=== PATIENT | male | born 1955 | race Caucasian/White ===

== ENCOUNTER 2022-03-31 09:57 | Emergency (ER) | payer OTHER ==
[~2022-03-31] VITALS: Ht 177.8 cm; Wt 77.1 kg
[2022-03-31 10:00] VITALS: BP 172/110
--- NOTE | 2022-03-31 10:03 | NUR ---
PT BIBA BLS TO BED 11
--- NOTE | 2022-03-31 10:05 | NUR ---
67/M BIBA FROM [facility], POST DIALYSIS COMPLETION, D/T HEMATURIA NOTED BY STAFF. PT REPORTS CHRONIC ABD PAIN S/P SX 1 MONTH AGO. DENIES NVD. AAO4, AMBULATORY, ON MONITOR. PMH: ABD TUMOR, HTN, RENAL FAILURE, DIALYSIS (MON,WED, FRI).
[2022-03-31 10:25] LABS: BASOPHILS # (AUTO) 0.1 K/uL (0.00-0.22); BASOPHILS % (AUTO) 1.3 % (0.0-2.0); EOSINOPHILS % (AUTO) 0.9 % (0.0-4.0); HEMATOCRIT 30.7 % (36-52); HEMOGLOBIN 9.8 g/dL (12.0-18.0); LYMPHOCYTES # (AUTO) 0.7 K/uL (2.0-11.5); LYMPHOCYTES % (AUTO) 16.1 % (20.5-51.1); MEAN CORPUSCULAR HEMOGLOBIN 24 pg (27-31); MEAN CORPUSCULAR HGB CONC 32 g/dL (33-37); MEAN CORPUSCULAR VOLUME 75.7 fL (80-94); MONOCYTES # (AUTO) 0.7 K/uL (0.8-1.0); MONOCYTES % (AUTO) 14.1 % (1.7-9.3); NEUTROPHILS # (AUTO) 3.1 K/uL (1.8-7.7); NEUTROPHILS % (AUTO) 67.6 % (42.2-75.2); PLATELET COUNT (AUTO) 245 K/uL (140-450); RED BLOOD CELL COUNT(AUTO) 4.06 MIL/uL (4.20-6.10); WHITE BLOOD COUNT (AUTO) 4.6 K/uL (4.8-10.8)
[2022-03-31 10:49] LABS: BILIRUBIN,URINE NEGATIVE (NEGATIVE); BLOOD, URINE LARGE (NEGATIVE); LEUKOCYTE ESTERASE ,URINE SMALL (NEGATIVE); NITRITE, URINE POSITIVE (NEGATIVE); PH,URINE 7.5 (5.0-9.0); UGLUCOSE NEGATIVE (NEGATIVE)
[2022-03-31 10:50] LABS: ALBUMIN 3.8 g/dL (3.4-5.0); CARBON DIOXIDE 32.8 mmol/L (21-32); CREATININE 3.6 mg/dL (0.6-1.3); TOTAL BILIRUBIN 0.5 mg/dL (0.0-1.0)
[2022-03-31 10:52] LABS: POTASSIUM 2.8 mmol/L (3.5-5.1)
[2022-03-31 10:58] LABS: APPEARANCE,URINE CLOUDY (CLEAR); COLOR,URINE ORANGE (YELLOW)
[2022-03-31 11:01] LABS: RBC,URINE 80-100 /HPF (0-5); WBC,URINE 60-80 /HPF (0-5)
[2022-03-31] MEDS ORDERED: CEPH-588 PO (11:22)
[2022-03-31 11:33] VITALS: BP 167/89
== END 2022-03-31 11:45 | disposition home or self-care (01) ==
LOC: MED 09:57
DX: N39.0 Urinary tract infection, site not specified (principal); D64.9 Anemia, unspecified; E87.6 Hypokalemia; N18.6 End stage renal disease; Z99.2 Dependence on renal dialysis
CPT/HCPCS: 36415; 80053; 81001; 85025; 93005; 99284

== ENCOUNTER 2023-08-28 17:53 | Inpatient (IN) | payer OTHER ==
[~2023-08-28] VITALS: Ht 172.7 cm; Wt 72.6 kg
[~2023-08-28 17:53] MED LIST: CEPH-588 PO
[2023-08-28 18:34] VITALS: BP 139/94; PULSE 103; RESP 18; TEMP 97.3; O2SAT 96
[2023-08-28 19:18] LABS: BASOPHILS % (AUTO) 0.6 % (0.0-2.0); EOSINOPHILS % (AUTO) 0.1 % (0.0-4.0); HEMATOCRIT 36.6 % (36-52); LYMPHOCYTES # (AUTO) 0.5 K/uL (2.0-11.5); LYMPHOCYTES % (AUTO) 9.6 % (20.5-51.1); MEAN CORPUSCULAR HEMOGLOBIN 30 pg (27-31); MEAN CORPUSCULAR HGB CONC 33 g/dL (33-37); MEAN CORPUSCULAR VOLUME 91.4 fL (80-94); MONOCYTES # (AUTO) 0.7 K/uL (0.8-1.0); MONOCYTES % (AUTO) 13.3 % (1.7-9.3); NEUTROPHILS % (AUTO) 76.4 % (42.2-75.2); PLATELET COUNT (AUTO) 98 K/uL (140-450); WHITE BLOOD COUNT (AUTO) 5.3 K/uL (4.8-10.8)
[2023-08-28 19:50] LABS: ALANINE AMINOTRANSFERASE 37 U/L (12-78); ALBUMIN 3.3 g/dL (3.4-5.0); ALCOHOL, BLOOD < 3 mg/dL (<10); ALKALINE PHOSPHATASE 176 U/L (50-136); ASPARTATE AMINOTRANSFERASE 35 U/L (15-37); BILIRUBIN,DIRECT 0.3 mg/dL (0.0-0.3); CREATINE KINASE, TOTAL 80 U/L (39-308); SALICYLATE < 2.8 mg/dL (2.8-20.0); TOTAL BILIRUBIN 0.6 mg/dL (0.0-1.0); TOTAL PROTEIN, SERUM 6.8 g/dL (6.4-8.2)
[2023-08-28 19:58] LABS: LACTIC ACID 2.1 mmol/L (0.4-2.0)
[2023-08-28 19:59] LABS: ANION GAP 20.4 (8-16); CALCIUM 9.1 mg/dL (8.5-10.1); CARBON DIOXIDE 25.7 mmol/L (21-32); POTASSIUM 5.1 mmol/L (3.5-5.1)
[2023-08-28 20:07] LABS: CREATININE 6.5 mg/dL (0.6-1.3)
[2023-08-28 20:15] VITALS: O2SAT 96
[2023-08-28] MEDS ORDERED: cefTRIAXone 1,000 MG VIAL ONE (21:09)
[2023-08-28] MEDS ORDERED: IPRATROPIUM 0.02% 0.5 MG/2.5 ML NEBU INH PRN (21:55)
[2023-08-28] MEDS ORDERED: ACETAMINOPHEN 325 MG TAB PO PRN (21:55)
[2023-08-28] MEDS ORDERED: ALBUTEROL 0.083% 2.5 MG/3 ML NEBU INH PRN (21:55)
[2023-08-28] MEDS ORDERED: ONDANSETRON 4 MG/2 ML VIAL IVP PRN (21:55)
[2023-08-28] MEDS: ALBUTEROL SULFATE/IPRATROPIU 3 ML SOL IH SCH (23:56)
[2023-08-29] VITALS (13 sets, daily range): BP systolic 120–142; BP diastolic 69–87; PULSE 68–102; RESP 16–76; TEMP 96.6–97.8; O2SAT 88–98
[2023-08-29] MEDS ORDERED: OLAN2.5T1 PO (00:23)
[2023-08-29] MEDS ORDERED: NIFE30TE5 PO (00:23)
[2023-08-29] MEDS ORDERED: TAMS0.4C96 PO (00:23)
[2023-08-29] MEDS ORDERED: CLON-1170 PO (00:23)
[2023-08-29] MEDS ORDERED: TACR1CAP6 PO (00:23)
[2023-08-29] MEDS ORDERED: METO50TE2 PO (00:23)
[2023-08-29] MEDS ORDERED: [UNRECOGNIZED DRUG - CODE] PO (00:23)
[2023-08-29] MEDS ORDERED: ACET-10509 PO (00:23)
[2023-08-29 09:52] LABS: BASOPHILS # (AUTO) 0.1 K/uL (0.00-0.22); BASOPHILS % (AUTO) 1.4 % (0.0-2.0); EOSINOPHILS # (AUTO) 0.1 K/uL (0-0.4); EOSINOPHILS % (AUTO) 2.2 % (0.0-4.0); HEMATOCRIT 37.6 % (36-52); HEMOGLOBIN 12.3 g/dL (12.0-18.0); LYMPHOCYTES # (AUTO) 0.7 K/uL (2.0-11.5); MEAN CORPUSCULAR HEMOGLOBIN 30 pg (27-31); MEAN CORPUSCULAR HGB CONC 33 g/dL (33-37); MEAN CORPUSCULAR VOLUME 91.5 fL (80-94); MONOCYTES # (AUTO) 0.5 K/uL (0.8-1.0); MONOCYTES % (AUTO) 12.5 % (1.7-9.3); NEUTROPHILS # (AUTO) 2.7 K/uL (1.8-7.7); NEUTROPHILS % (AUTO) 66.9 % (42.2-75.2); PLATELET COUNT (AUTO) 103 K/uL (140-450); RED CELL DISTRIBUTION WIDTH 16.3 % (11.6-13.7); WHITE BLOOD COUNT (AUTO) 4.1 K/uL (4.8-10.8)
[2023-08-29 10:13] LABS: ALBUMIN 3.3 g/dL (3.4-5.0); ANION GAP 19.2 (8-16); CALCIUM 9.7 mg/dL (8.5-10.1); CARBON DIOXIDE 26.8 mmol/L (21-32); TOTAL BILIRUBIN 0.6 mg/dL (0.0-1.0); TOTAL PROTEIN, SERUM 6.7 g/dL (6.4-8.2)
[2023-08-29 10:17] LABS: CREATININE 7.6 mg/dL (0.6-1.3)
[2023-08-29] MEDS: AZITHROMYCIN 500 MG in DEXTROSE 5% 250 ML IV SCH (12:00)
[2023-08-30] VITALS: BP 148/82; PULSE 72; RESP 18; TEMP 98.2; O2SAT 97
[2023-08-30 04:00] VITALS: BP 152/94; PULSE 78; RESP 16; TEMP 98.8; O2SAT 98
[2023-08-30 04:09] VITALS: PULSE 95; RESP 19; O2SAT 100
[2023-08-30 07:34] LABS: ANION GAP 19.7 (8-16); CALCIUM 9.5 mg/dL (8.5-10.1); CARBON DIOXIDE 26.3 mmol/L (21-32)
[2023-08-30 07:58] LABS: CREATININE 5.8 mg/dL (0.6-1.3)
[2023-08-30 08:01] VITALS: PULSE 80; RESP 18; O2SAT 94
[2023-08-30 11:00] VITALS: PULSE 95; O2SAT 96
[2023-08-30 13:45] VITALS: O2SAT 99
== END 2023-08-30 14:25 | DRG 177 ==
LOC: MED 17:53 → MTU 21:53
PROVIDERS: ADMIT Hospitalist; ATTEND Hospitalist
PROC: 5A1D70Z Performance of Urinary Filtration, Intermittent, Less than 6 Hours Per Day (ICD-10-PCS; principal; 2023-08-29)
DX: J69.0 Pneumonitis due to inhalation of food and vomit (principal); G93.41 Metabolic encephalopathy; N18.6 End stage renal disease; I48.20 Chronic atrial fibrillation, unspecified; I12.0 Hypertensive chronic kidney disease with stage 5 chronic kidney disease or end stage renal disease; R65.10 Systemic inflammatory response syndrome (SIRS) of non-infectious origin without acute organ dysfunction; E11.40 Type 2 diabetes mellitus with diabetic neuropathy, unspecified; Z79.899 Other long term (current) drug therapy; E11.22 Type 2 diabetes mellitus with diabetic chronic kidney disease
CPT/HCPCS: 36415; 70450; 71045; 80048; 80053; 80076; 82550; 83605; 84484; 85025; 87040; 90935; 93005; 94640; 96374; 97116; 97163-GP; 97530; 99291; G0480; G0482; J0456; J0696; J1644; J7060